=== PATIENT | female | born 1965 ===

== ENCOUNTER → 2018-03-22 21:15 | Outpatient (REF) | payer OTHER, MEDICAID, SELFPAY ==
[2018-03-25 11:34] LABS: QuantiFERON TB NEGATIVE (Negative)
== END ==
LOC: LAB 21:15
PROVIDERS: Visit Provider General Practice
DX: Z11.3 Encounter for screening for infections with a predominantly sexual mode of transmission (principal)
CPT/HCPCS: 86480